=== PATIENT | female | born 1980 | race Caucasian/White ===

== ENCOUNTER 2018-01-14 15:43 | Emergency (ER) | payer OTHER ==
[~2018-01-14] VITALS: Ht 162.6 cm; Wt 71.4 kg
[~2018-01-14 15:43] MED LIST: FLINTSTONES M100 MCG PO; KLONOPIN1 MG PO; OMEPRAZOLE40 M1 PO; TOPIRAMATE ER25 MG PO
[2018-01-14 16:15] VITALS: BP 120/71
== END 2018-01-14 17:28 | disposition left against medical advice (07) ==
LOC: EME 15:43
DX: M54.5 Low back pain (principal); Z53.21 Procedure and treatment not carried out due to patient leaving prior to being seen by health care provider